=== PATIENT | female | born 2005 | race Caucasian/White ===

== ENCOUNTER 2025-07-09 23:20 | Emergency (ER) | payer BC ==
[2025-07-09 23:38] LABS: Glucose, Urine (Dipstick) Normal (Negative); Leukocyte 25 (Negative); Protein, Urine (Dipstick) Negative (Neg-Trace); Specific Gravity, Urine 1.010 (1.005-1.030)
[2025-07-09 23:50] LABS: CAUTI Indications for Culture Pelvic or flank pain; Pregnancy Test - Urine (BHCG) Negative (Negative); Pregu Control Background? CLEAR/WHITE (CLR/WHITE); Pregu Control Bar Appear? YES (CONTROL BAR); RBC/HPF None Seen HPF (0-3); WBC/HPF 0-3 HPF (0-3)
[2025-07-09 23:51] LABS: Bacteria/HPF None Seen HPF (None Seen); Urine Culture Reflex No No
[2025-07-10 00:03] LABS: #Basophils 0.04 10x3/uL (0.0-0.2); #Eosinophils 0.03 10x3/uL (0.0-0.5); #Monocytes 0.47 10x3/uL (0.0-1.1); #Neutrophils 7.39 10x3/uL (1.5-8.4); %Basophils 0.4 % (0.0-2.0); %Eosinophils 0.3 % (0.0-6.0); %Lymphocytes 19.3 % (18.0-47.0); %Monocytes 4.8 % (0.0-10.0); %Neutrophils 74.9 % (40.0-75.0); Hematocrit 39.1 % (34.9-44.5); Hemoglobin 13.3 g/dL (12.0-15.5); Mean Corpuscular Hemoglobin 30.2 pg (27.0-33.0); Mean Corpuscular Volume 88.9 fL (81.6-98.3); Platelet Count 333 10x3/uL (150-450); Red Blood Cell (RBC) Count 4.40 10x6/uL (3.90-5.03); White Blood Cell (WBC) Count 9.86 10x3/uL (3.5-10.5)
[2025-07-10 00:18] LABS: ALT (SGPT) 11 U/L (Less than 34); AST (SGOT) 22 U/L (11-34); Albumin 4.8 g/dL (3.1-4.5); Alkaline Phosphatase 87 U/L (40-100); Anion Gap 15 mmol/L (10-20); BUN (Urea Nitrogen) 13 mg/dL (8.4-21.0); Bilirubin, Total 0.3 mg/dL (0.3-1.2); Calc. Creatinine Clearance 0 mL/min (70-130); Calcium 10.1 mg/dL (7.8-10.44); Carbon Dioxide 26 mmol/L (22-29); Chloride 107 mmol/L (98-107); Globulin 3.2 g/dL (2.4-3.5); Glucose 109 mg/dL (70-105); Potassium 4.4 mmol/L (3.5-5.1); Sodium 144 mmol/L (136-145)
[2025-07-10] MEDS ORDERED: Ketorolac Tromethamine 30 MG (1 mL) VIAL ONE (02:07)
== END 2025-07-10 02:16 | disposition home or self-care (01) ==
LOC: CSHERS 23:20
DX: R10.22 Pelvic and perineal pain left side (principal); N94.0 Mittelschmerz
CPT/HCPCS: 36415; 76856; 80053; 81001; 81025; 85025; 96374; J1885